=== PATIENT | male | born 1970 | race Caucasian/White ===

== ENCOUNTER → 2018-10-15 | Outpatient (CLI) | payer BC ==
[2018-10-15 07:56] LABS: CHOLESTEROL 183 mg/dL (<200); HDL CHOLESTEROL 38 mg/dL (>40); LDL CHOLESTEROL 126 mg/dL (<100); SERUM ASSESSMENT Clear; TC:HDL 4.8 Ratio (Not establshd); TRIGLYCERIDE 98 mg/dL (<150); VLDL 20 mg/dL (<40)
== END ==
LOC: M.LAB 07:20
PROVIDERS: Internal Medicine Cardiovascular Disease
DX: E78.2 Mixed hyperlipidemia (principal)

== ENCOUNTER → 2019-05-10 | Outpatient (CLI) | payer BC ==
[2019-05-10 09:30] LABS: ABSOLUTE BASOPHILS 0.1 thou/uL (0.0-0.2); ABSOLUTE EOSINOPHILS 0.3 thou/uL (0.0-0.7); ABSOLUTE LYMPHOCYTES 2.5 thou/uL (0.8-5.3); ABSOLUTE MONOCYTES 0.6 thou/uL (0.0-1.2); ABSOLUTE NEUTROPHILS 3.5 thou/uL (1.6-8.1); BASOPHILS 0.8 %; EOSINOPHILS 4.3 %; HEMATOCRIT 44.7 % (42.0-52.0); HEMOGLOBIN 14.7 gm/dL (14.0-18.0); LYMPHOCYTES 36.1 %; MCH 28.2 pg (26.0-34.0); MCHC 32.9 g/dL (28.0-37.0); MCV 85.7 fL (80.0-100.0); MONOCYTES 8.1 %; MPV 6.8 fl. (7.2-11.1); NUCLEATED RBCS 0 /100WBC; PLATELET COUNT* 381 thou/uL (150-400); POLYS 50.7 %; RBC 5.21 mil/uL (4.50-6.00); RDW-CV 14.4 % (10.5-14.5); WBC 6.8 thou/uL (4.0-11.0)
[2019-05-10 09:43] LABS: CHOLESTEROL 111 mg/dL (<200); HDL CHOLESTEROL 35 mg/dL (>40); LDL CHOLESTEROL 38 mg/dL (<100); TC:HDL 3.2 Ratio (Not establshd); TRIGLYCERIDE 194 mg/dL (<150); VLDL 39 mg/dL (<40)
[2019-05-10 09:46] LABS: SERUM ASSESSMENT Clear
== END ==
LOC: M.LAB 09:05
PROVIDERS: Nurse Practitioner
DX: Z13.29 Encounter for screening for other suspected endocrine disorder (principal); E78.2 Mixed hyperlipidemia; I25.10 Atherosclerotic heart disease of native coronary artery without angina pectoris

== ENCOUNTER → 2019-05-20 | Outpatient (CLI) | payer BC ==
--- NOTE | 2019-05-21 08:38 | CARDNUC ---
[place] [address] CARDIAC NUCLEAR IMAGING REPORT Name: GERMAN KERNS CRALIEMARISA Room: [facility]#: [id number] Admission: 05/20/19 Attend Phys: Gonzalo Clancy, Discharge: Date of : 66 Date of Service: 05/21/19 0837 Report #: [id number] THIS REPORT FOR: //name// APPROVED REPORT Study performed: 05/20/2019 09:47:12 Exam: Nuclear Stress Test Indication: follow up Patient Location: Out-Patient Stress Tech: Makayla Becerra Stress Nurse: Carolyn Mcleod RN NM Tech:ASHLEY Farris Ht: 5 ft 11 in Wt: 176 lbs BSA: 2.00 m2 BMI: 24.54 Medical History Medical History: CAD s/p [place], HTN, Hyperlipidemia Medications: repatha, asa-81 Allergies: No known drug allergies Cardiac Risk Factors: Age, HTN, Hyperlipidemia, FHX of CAD Previous Cardiac Procedures: pci Exercise History: Physically active Stress Test Details Stress Test: Exercise stress testing was performed using a Johnny protocol. HR Resting HR: 62 bpm Max Heart Rate (APMHR): 169 bpm Max HR Achieved: 148 bpm Target HR (85% APMHR): 143 bpm % of APMHR: 87 Recovery HR: 89 bpm HR response to stress: Normal HR response to stress BP Resting BP: 132/92 mmHg Max BP: 187/84 mmHg BP response to stress: Normal blood pressure response to stress. ECG Resting ECG: Sinus Rhythm Stress ECG: Sinus Tachycardia ST Change: None [address] [address] CARDIAC NUCLEAR IMAGING REPORT Name: GERMAN KERNS Room: [facility]#: [id number] Admission: 05/20/19 Attend Phys: Gonzalo Clancy, Discharge: Date of : 66 Date of Service: 05/21/19 0837 Report #: [id number] Arrhythmia: None Recovery ECG: Sinus Rhythm Recovery ST Change: None Recovery Arrhythmia: None Clinical Reason for Termination: Fatigue Exercise duration: 14 min sec Overall Exercise Capacity for Age: Superior The patient tolerated exercised per standard Johnny protocol without significant cardiac symptoms. Stress ECG Conclusion The baseline 12-lead EKG show sinus rhythm without significant ST or T wave abnormality. EKGs obtained during and post exercise showed sinus rhythm and sinus tachycardia with no significant ST or T wave changes when compared to baseline. NM EXAM: Myocardial Perfusion REST/STRESS Imaging Protocol: Rest Tc-99m/Stress Tc-99m 1 day Resting Data Rest SPECT myocardial perfusion imaging was performed in supine position 30 minutes following the intravenous injection of 11.1 mCi of Tc-99m Sestamibi. Time of rest injection: 754 Date: 05/20/2019 The images were gated to evaluate regional wall motion and calculate left ventricular ejection fraction. Administration Route: IV Administration Site: Right Hand Exercise Stress At peak stress, the patient was injected intravenously with 35.7mCi of Tc-99m Sestamibi. Time of stress injection: 1000 Date: 05/20/2019 Administration Route: IV Administration Site: Right Hand Gated Stress SPECT was performed 30 minutes after stress injection. The images were gated to evaluate regional wall motion and calculate left ventricular ejection fraction. Prone imaging was performed. Study Quality Study: Good Artifact: [place] [address] CARDIAC NUCLEAR IMAGING REPORT Name: GERMAN KERNS Room: [facility]#: [id number] Admission: 05/20/19 Attend Phys: Gonzalo Clancy, Discharge: Date of : 66 Date of Service: 05/21/19 0837 Report #: [id number] Study Data At rest, the left ventricular ejection fraction was 67%.. Post stress, the left ventricular ejection was 64%.. TID = 0.86. Perfusion Myocardial perfusion images show no defect to suggest infarct or ischemia. Wall Motion Normal left ventricular wall motion. Nuclear Conclusion ECG Findings: negative for ischemia Clinical Findings: negative for ischemia Nuclear Findings: negative for ischemia Exercise Capacity: normal Left Ventricular Function: normal Risk Study: low Myocardial perfusion images show no defect to suggest infarct or ischemia. The patient exhibited excellent exercise tolerance. On gated studies LV systolic function is normal. This is a low risk study. <Conclusion> The baseline 12-lead EKG show sinus rhythm without significant ST or T wave abnormality. EKGs obtained during and post exercise showed sinus rhythm and sinus tachycardia with no significant ST or T wave changes when compared to baseline. <ELECTRONICALLY SIGNED> By: Gonzalo Clancy MD, FACC 05/21/19 0837 6 Gonzalo Clancy MD, FACC /INF
== END ==
LOC: M.NUC 04-30 14:30
DX: I25.10 Atherosclerotic heart disease of native coronary artery without angina pectoris (principal); I25.2 Old myocardial infarction; I10 Essential (primary) hypertension; E78.5 Hyperlipidemia, unspecified

== ENCOUNTER → 2019-05-29 | Outpatient (CLI) | payer BC ==
[2019-05-29 08:55] LABS: CALCIUM 10.1 mg/dL (8.5-10.1); CREATININE 1.1 mg/dL (0.6-1.3); POTASSIUM 4.7 mmol/L (3.5-5.1)
== END ==
LOC: M.LAB 08:28
PROVIDERS: Nurse Practitioner
DX: I25.10 Atherosclerotic heart disease of native coronary artery without angina pectoris (principal)

== ENCOUNTER → 2020-01-24 | Outpatient (CLI) | payer BC ==
[2020-01-24 08:54] LABS: CHOLESTEROL 117 mg/dL (<200); HDL CHOLESTEROL 32 mg/dL (>40); LDL CHOLESTEROL 47 mg/dL (<100); TC:HDL 3.7 Ratio (Not establshd); TRIGLYCERIDE 191 mg/dL (<150); VLDL 38 mg/dL (<40)
[2020-01-24 08:55] LABS: SERUM ASSESSMENT Clear
== END ==
LOC: M.LAB 07:32
PROVIDERS: ATTEND Internal Medicine Cardiovascular Disease
DX: E78.1 Pure hyperglyceridemia (principal)